=== PATIENT | female | born 1975 | race African-American/Black ===

== ENCOUNTER → 2021-12-03 | Outpatient (CLI) | payer OTHER ==
[~2021-12-03] MED LIST: HYDR-519; HYDR1POW; METH-817
== END | disposition home or self-care (01) ==
LOC: MRI 16:27
PROVIDERS: ATTEND Family Medicine Adult Medicine
DX: M19.071 Primary osteoarthritis, right ankle and foot (principal); M25.774 Osteophyte, right foot
CPT/HCPCS: 73721